=== PATIENT | male | born 1995 | race African-American/Black ===

== ENCOUNTER 2025-03-02 19:31 | Emergency (ER) | payer OTHER, SELFPAY ==
--- NOTE | ~2025-03-02 | XR_ITS ---
EXAMINATION: XR chest 2V Exam Date/Time: 03/02/2025 19:58 CDT HISTORY: chest pain Comparison: 05/23/2018. RESULT: Lines, tubes, and devices: None. Lungs and pleura: Clear. Cardiomediastinal silhouette: Stable. Other: No acute osseous or upper abdominal finding. IMPRESSION: No acute cardiopulmonary process. Reviewed, dictated and finalized at location K.
[2025-03-02 19:31] VITALS: BP 146/78; PULSE 70; RESP 14; TEMP 36.3; O2SAT 99
--- NOTE | 2025-03-02 19:33 | ECG_ITS ---
Test Date: 2025-03-02 19:37:11 Measurements Intervals [place] Rate: 69 P: 66 CA: 130 QRS: 35 QRSD: 85 T: 19 QT: 348 QTc: 373 Interpretive Statements SINUS RHYTHM BASELINE ARTIFACT- I, II, AVR, AVL NORMAL ECG No previous ECG available for comparison Electronically Signed On 03-03-2025 07:24:52 CDT by Devon Orozco D.O.
--- OUTSIDE RECORDS SUMMARY | 2025-03-02 19:35 | XMS_ITS | Clinical Summary ---
Author Organization [facility] Address [address] [place] [address] Care Team Providers Care Horticulture/Floriculture Teacher Name Role Phone Humble Martínez MD Primary Care Provider Unavaila ble Source Comments [facility],non-owned Affiliates and Associated Physician Practices is amultiple site organization consisting of ambulatory clinics and hospital sitesin [place], [place], [place] and [place]. This disclosure is being madepursuant to the Care Everywhere program and may not contain all information available regarding this patient. Last updated 18.[facility] Allergies No known active allergies Medications * Be aware that medications may not be up to date on this document. Alwaysverify current medications with the patient. 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 Gender Identity Not on file Sexual Orientation Not on file Last Filed Vital Signs Vital Sign Reading Time Taken Comments Blood Pressure 129/84 03/21/2012 2:02 PM CDT Pulse 60 03/21/2012 3:02 PM CDT Temperature 36.6 C (97.8 F) 03/21/2012 2:02 PM CDT Respiratory Rate 16 03/21/2012 3:02 PM CDT Oxygen Saturation - - Inhaled Oxygen Concentration - - Weight 72.1 kg (158 lb 15.2 oz) 03/21/2012 2:02 PM CDT Height - - Body Mass Index - - Plan of Treatment Health Maintenance Due Date Last Done Comments HIV SCREENING 2011 HEPATITIS C SCREENING 05/06/2014 DTAP/TDAP/TD VACCINES (1 - Tdap) 2015 HEPATITIS B VACCINE (1 of 3 - 19+ 3-dose series) 2015 HPV VACCINE (1 - 3-dose SCDM series) 2023 COVID-19 VACCINE (1 - 2023-2 5 season) 2024 DEPRESSION SCREENING 08/02/2024 INFLUENZA VACCINE (#1) 2025 ZOSTER VACCINE (1 of 2) 2046 HIB VACCINE Aged Out No longer eligi ble based on patient's age to complete this topic MENINGOCOCCAL (Group B) VACC INE SHARED DECISION-MAKING Aged Out No longer eligibl e based on patient's age to complete this topic MENINGOCOCCAL GROUPS A/C/Y/W VACCINE Aged Out No longer eligible b ased on patient's age to complete this topic PNEUMOCOCCAL VACCINE Aged Out No long er eligible based on patient's age to complete this topic Insurance MEDICAID - [place] Care Teams Horticulture/Floriculture Teacher Relationship Specialty Start Date End Date Humble Martínez MD PCP - General Family Medicine 03/21/12
[2025-03-02 19:50] VITALS: PULSE 77
--- OUTSIDE RECORDS SUMMARY | 2025-03-02 20:12 | XMS_ITS | Clinical Summary ---
Author Organization [facility] Address [address] [place] [address] Care Team Providers Care Laboratory Technology Teacher Name Role Phone Humble Martínez MD Primary Care Provider Unavaila ble Source Comments [facility],non-owned Affiliates and Associated Physician Practices is amultiple site organization consisting of ambulatory clinics and hospital sitesin [place], [place], [place] and [place]. This disclosure is being madepursuant to the Care Everywhere program and may not contain all information available regarding this patient. Last updated 18.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
--- NOTE | 2025-03-02 20:22 | ED_ITS ---
HPI - Chest Pain General Chief Complaint: Chest Pain Stated Complaint: chest pain Time Seen by Provider: 03/02/25 19:42 History of Present Illness HPI narrative: 29-year-old otherwise healthy male presenting to the emergency room with right- sided chest discomfort near the sternal area that began after he was throwing away some heavy objects into a garbage can last night. Denies any symptoms such as shortness of breath, nausea, vomiting, back pain, neck pain or jaw pain. Pain does not radiate anywhere. No neurological complaints. No direct traumatic injuries or any other symptoms at this time. States that the symptoms have already gotten better since yesterday. Did not take anything such as ibuprofen or Tylenol. Was otherwise in his normal state of health. No cardiac history and no family history of significant cardiac disease. Related Data Allergies Allergy/AdvReac Type Severity Reaction Status Date / Time No Known Allergies Allergy Unverified 01/21/19 09:24 Review of Systems Review of Systems: As reviewed above in HPI Exam Narrative: GENERAL: [Well-appearing, well-nourished, and in no acute distress.] HEAD: [Normocephalic, atraumatic.] EYES: [PERRLA and EOMI.] ENT: Nares clear, no rhinorrhea or epistaxis. Mucous membranes moist. NECK: Supple. CHEST: [Clear to auscultation. No respiratory distress.] Reproducible tenderness to palpation along the right-sided sternal edge without any overlying skin changes HEART: [Regular rate and rhythm]. No murmur heard. [Normal peripheral pulses.] ABDOMEN: [Soft, nondistended], [nontender], [No rigidity or guarding] EXTREMITIES: Normal range of motion. [No edema.] SKIN: Warm, dry, no rash. NEURO: [No focal deficits]. Alert and oriented [x3.] PSYCH: [Normal mood and affect.] Course Vital Signs Vital signs: Vital Signs Temperature 36.3 C L 03/02/25 19:31 Pulse Rate 70 03/02/25 19:31 Respiratory Rate 14 03/02/25 19:31 Blood Pressure 146/78 H 03/02/25 19:31 Pulse Oximetry 99 03/02/25 19:31 Oxygen Delivery Room Air 03/02/25 19:31 Temperature 36.3 C L 03/02/25 19:31 Pulse Rate 66 03/02/25 21:37 Respiratory Rate 18 03/02/25 21:37 Blood Pressure 135/71 03/02/25 21:37 Pulse Oximetry 100 03/02/25 21:37 Oxygen Delivery Room Air 03/02/25 19:31 MDM - Chest Pain MDM Narrative Medical decision making narrative: 29-year-old otherwise healthy male presenting to the emergency room with right- sided chest discomfort near the sternal area that began after he was throwing away some heavy objects into a garbage can last night. Denies any symptoms such as shortness of breath, nausea, vomiting, back pain, neck pain or jaw pain. Pain does not radiate anywhere. No neurological complaints. No direct traumatic injuries or any other symptoms at this time. States that the symptoms have already gotten better since yesterday. Did not take anything such as ibuprofen or Tylenol. Was otherwise in his normal state of health. No cardiac history and no family history of significant cardiac disease. Patient is reassuring vital signs here without any tachycardia, fever, hypoxia significant blood pressure concerns. He has a reassuring examination with strong symmetric pulses in clear breath sounds. Pain reproducible on the right side of the sternum consistent with likely costochondritis or musculoskeletal strain and less likely intrathoracic process. Low risk factors for ACS. EKG and chest x-ray ordered for further risk stratification and rule out. Initially blood work was ordered in triage but patient declined any laboratory assessments and does not want to be poked her blood. I thought this was reasonable as he has no clinical suspicion for cardiac etiology and our current workup plan is sufficient. EKG shows sinus rhythm, no ST segment elevations, depressions or inversions. Chest x-ray shows no acute cardiopulmonary process. Patient is safe for discharge home with follow-up with his PCP and instructions for Tylenol and ibup rofen for musculoskeletal aches and pains as well as return precautions. Medical Records Data Attestation: I reviewed the patient's medical records. Imaging Data Attestation: I personally reviewed and interpreted this imaging study as follows: My impression: No acute findings Discharge Plan Discharge Clinical Impression: Costochondritis, Chest pain, musculoskeletal Patient Disposition: Home Condition: Stable Instructions: Antibiotic Form, Costochondritis (ED), Chest Wall Pain (ED) Additional Instructions: Your EKG is normal, chest x-ray without any concerning findings regarding your lungs or ribs. Take Tylenol and ibuprofen at home for any aches or pains. Return with any emergent concerns but otherwise follow-up with regular doctor. Patient Language: Nigerian Follow-up/Referrals: Sharona,Soraya Morales [Primary Care Provider] - Stand Alone Forms: Work/School Release IP Time of Disposition: 21:02
[2025-03-02 21:37] VITALS: BP 135/71; PULSE 66; RESP 18; O2SAT 100
== END 2025-03-02 21:39 | disposition home or self-care (01) ==
PROVIDERS: Emergency Provider Student in an Organized Health Care Education/Training Program; PCP Internal Medicine Infectious Disease
DX: M94.0 Chondrocostal junction syndrome [Tietze] (principal); R07.89 Other chest pain
CPT/HCPCS: 71046; 93005; 99284